=== PATIENT | female | born 1995 | race Two or more races ===

== ENCOUNTER 2018-09-06 09:00 | Inpatient (IN) | payer MEDICAID ==
[2018-09-06] VITALS (10 sets, daily range): BP systolic 101–130; BP diastolic 60–96
[~2018-09-06] VITALS: Ht 157.5 cm; Wt 129.3 kg
[~2018-09-06 09:00] MED LIST: IBUP1POW8 PO; PREN-96 PO
[2018-09-06] MEDS ORDERED: LACTATED RINGER'S 1,000 ML IV SCH (09:17)
[2018-09-06 09:44] LABS: Basophils # (auto) 0 uL; Eosinophils # (auto) 0.1 uL; Eosinophils % (auto) 1.1 % (0.0-7.0); Hemoglobin 11.1 g/dL (12.2-16.2); Lymphocytes # (auto) 1.6 uL; Monocytes # (auto) 0.6 uL
[2018-09-06 09:46] LABS: Basophils % (auto) 0.4 % (0.0-2.0); Hematocrit 34.7 % (36.0-46.0); Mean Corpuscular Hgb Conc. 32.1 g/dL (32.0-36.0); Mean Corpuscular Volume 77.9 fL (80.0-100.0); Monocytes % (auto) 6.3 % (0.0-12.0); Neutrophils # (auto) 7.3 uL; Neutrophils % (auto) 75.2 % (37.0-80.0); Platelet Count (auto) 361 10^3/uL (140-450); Red Blood Cells 4.45 10^6/uL (4.0-5.20); Red Cell Distribution Width 15.4 % (11.8-14.3); White Blood Cell 9.7 10^3/uL (4.4-10.8)
[2018-09-06 10:00] LABS: INR 0.84 (0.9-1.15); Partial Thromboplastin Time 27.1 sec (23.78-33.04); Prothrombin Time 9.1 sec (9.27-12.13)
[2018-09-06 10:02] LABS: Urine Bacteria FEW /hpf (None Seen); Urine Blood Negative /uL (Negative); Urine WBC 1 /hpf (0 - 5)
[2018-09-06 10:13] LABS: Albumin 2.6 g/dL (3.4-5.0); Calcium 8.6 mg/dL (8.5-10.1)
[2018-09-06 10:18] LABS: BUN/Creatinine Ratio 14.5; Bilirubin, Total 0.2 mg/dL (0.2-1.0); Total Protein 6.7 g/dL (6.4-8.2)
[2018-09-06] MEDS ORDERED: fentaNYL CITRATE 100 MCG/2 ML VL ONE (13:35)
[2018-09-06] MEDS ORDERED: MORPHINE SULF(PF) 0.5MG/ML 10ML VIAL ONE (13:35)
[2018-09-06] MEDS ORDERED: CLINDAMYCIN 900MG IV 50 ML IV ONE (14:33)
[2018-09-06] MEDS: LACTATED RINGER'S 1,000 ML IV SCH (14:58)
[2018-09-06] MEDS ORDERED: HYDROmorphone HCL 2 MG/ML VL IV PRN (15:00)
[2018-09-06] MEDS ORDERED: ONDANSETRON HCL 4 MG/2 ML VIAL IV PRN (15:00)
[2018-09-06] MEDS ORDERED: hydrALAZINE HCL 20 MG/ML VL IV PRN (15:00)
[2018-09-06] MEDS ORDERED: ONDANSETRON HCL 4 MG/2 ML VIAL IV ONE (15:00)
[2018-09-06] MEDS ORDERED: ePHEDrine SULFATE 50 MG/ML AMP IV PRN (15:00)
--- NOTE | 2018-09-06 16:05 | NUR ---
Post Op for LDRP: Received patient from PACU via bed to room . Patient A/A/Ox4, abdominal binder and bilateral SCD's are in place, IV fluids placed on pump and infusing per order, incisional site dressing clean/dry/intact and Farris Catheter to gravity draining clear yellow urine. Incentive Spirometer at bedside and instruction on proper use with return demonstration done by patient.
[2018-09-06] MEDS ORDERED: LACT. RINGERS/OXYTOCIN 20UNITS 1,000 ML IV ONE ×2 (16:12→16:45)
[2018-09-06] MEDS ORDERED: guaiFENesin-CODEINE LIQUID 5 ML UD PO PRN (17:00)
--- NOTE | 2018-09-06 17:00 | NUR ---
complained of cough,dr. solorio was called and updated on patient's status,received order to give robitussin cough syrup as directed.
[2018-09-06] MEDS: KETOROLAC TROMETH 30 MG/ML 1ML VIAL IV SCH (17:08)
--- NOTE | 2018-09-06 17:20 | NUR ---
dr. solorio was called back and reported that the patient desats when coughing,received order to order a breathing tx.
[2018-09-06] MEDS ORDERED: ALBUTEROL SULF 2.5 MG/0.5ML(0.5%) NEB SOLN NEB PRN (17:30)
--- NOTE | 2018-09-06 19:00 | NUR ---
Assessment Complete VS WNL, SCS in place bilaterally, pt still connected to dynamap for interval VS monitoring, abdominal incision dressing dry and intact.
[2018-09-06] MEDS: HYDROmorphone HCL 2 MG/ML VL IV PRN (22:14)
[2018-09-06] MEDS: CLINDAMYCIN 900MG IV 50 ML IV SCH (22:21)
--- NOTE | 2018-09-06 22:25 | NUR ---
Dilaudid IVP 1 mg/0.5 ml given. 0.5 ml wasted with Ira Paulson RN in medroom.
[2018-09-07] VITALS (11 sets, daily range): BP systolic 88–138; BP diastolic 47–74
[2018-09-07] MEDS: KETOROLAC TROMETH 30 MG/ML 1ML VIAL IV SCH (03:51)
[2018-09-07] MEDS: LACTATED RINGER'S 1,000 ML IV SCH ×3 (04:00→14:58)
--- NOTE | 2018-09-07 04:20 | NUR ---
Eden catheter dc'd Order to discontinue eden catheter. Eden dc'd with clean technique following deflation of balloon. Patient has no complaints of pain. SCD's removed, pt able to lift legs and states that she has regained feeling down to her feet. Dressing covering incision removed, all oneil in tact, surrounding area clean and dry, without drainage. Pt sitting at bedside with feet dangling, reports no dizziness or feeling of being light headed. Pt ambulates to bathroom with steady gait, pt able to void 50 ml of urine without complication. Pt provided instructed on how to perform pericare, pt returned demonstration. Pt ambulated to chair at bedside with steady gait. Pt displays no signs of distress at this time.
[2018-09-07] MEDS: HYDROmorphone HCL 2 MG/ML VL IV PRN (06:00)
[2018-09-07] MEDS: CLINDAMYCIN 900MG IV 50 ML IV SCH ×2 (06:31→14:13)
[2018-09-07] MEDS: guaiFENesin-DM 100/10mg/5ml SYR PO PRN ×3 (06:58→15:01)
--- NOTE | 2018-09-07 07:00 | NUR ---
PRN [place] TX NOT INDICATED AT THIS TIME. PT IS AWAKE, ALERT AND ORIENTED. PT SITTING UP ON CHAIR. PT ON RA, 96% O2 SATS, HR 68 BPM, [id number], BS ARE CLEAR TO AUSCULTATION, SKIN IS DRY AND WARM TO THE TOUCH. NO SOB OR ANY OTHER RESPIRATORY DISTRESS NOTED. PT INSTRUCTED TO CALL IF [place] TX IS INDICATED. PT VERBALIZED UNDERSTANDING. WILL CONTINUE TO MONITOR PT.
[2018-09-07 07:29] LABS: Basophils # (auto) 0 uL; Basophils % (auto) 0.3 % (0.0-2.0); Monocytes # (auto) 0.6 uL
[2018-09-07 07:31] LABS: Eosinophils # (auto) 0.1 uL; Eosinophils % (auto) 0.6 % (0.0-7.0); Hematocrit 32.3 % (36.0-46.0); Hemoglobin 10.7 g/dL (12.2-16.2); Lymphocytes # (auto) 1.9 uL; Lymphocytes % (auto) 20.8 % (10.0-50.0); Mean Corpuscular Hemoglobin 25.9 pg (28.0-32.0); Mean Corpuscular Hgb Conc. 33.2 g/dL (32.0-36.0); Mean Corpuscular Volume 78.2 fL (80.0-100.0); Monocytes % (auto) 6.7 % (0.0-12.0); Neutrophils # (auto) 6.5 uL; Neutrophils % (auto) 71.6 % (37.0-80.0); Nucleated Red Blood Cells % 0.1 %; Platelet Count (auto) 312 10^3/uL (140-450); Red Blood Cells 4.13 10^6/uL (4.0-5.20); White Blood Cell 9.1 10^3/uL (4.4-10.8)
[2018-09-07] MEDS ORDERED: KETOROLAC TROMETH 30 MG/ML 1ML VIAL IV SCH (10:00)
[2018-09-07] MEDS: DOCUSATE SOD 100 MG CAP PO SCH ×2 (14:23→21:52)
[2018-09-07] MEDS ORDERED: HYDROcodone-ACET 5/325MG TAB PO PRN (14:30)
[2018-09-07] MEDS ORDERED: SIMETHICONE 80 MG CHEWABLE TABLET PO PRN (14:30)
--- NOTE | 2018-09-07 17:00 | NUR ---
ambulated in the hallway 3 x and well tolerated.
[2018-09-07] MEDS: HYDROcodone-ACET 5/325MG TAB PO PRN (19:00)
--- NOTE | 2018-09-07 19:33 | NUR ---
Respiratory note: PT IS CURRENTLY ON ROOM AIR: HR 78, RR 18, SPO2 98% WITH CLEAR/DIM BS T/O. PT SHOWS NO S/S OF ANY RESPIRATORY DISTRESS. INFORMED PT IF SOB TO CONTACT RESPIRATORY FOR BREATHING TX. WILL CONTINUE TO MONITOR.
[2018-09-07] MEDS: IBUPROFEN 800 MG TAB PO SCH (21:52)
[2018-09-08 03:20] VITALS: BP 121/67
[2018-09-08] MEDS: HYDROcodone-ACET 5/325MG TAB PO PRN ×3 (04:07→21:38)
[2018-09-08] MEDS: IBUPROFEN 800 MG TAB PO SCH (06:04)
[2018-09-08 07:10] VITALS: BP 102/65
[2018-09-08] MEDS: DOCUSATE SOD 100 MG CAP PO SCH ×2 (10:29→21:38)
[2018-09-08 10:50] VITALS: BP 96/64
[2018-09-08 15:00] VITALS: BP 111/66
--- NOTE | 2018-09-08 16:09 | NUR ---
RT NOTE: PT. IN BATHROOM WHEN I WENT TO CHECK ON HER FOR PRN BREATHING TX. SPOKE WITH RN BROWN AND SHE STATES PT. HAS BEEN GOOD ALL DAY WITH NO COMPLAINTS OF SOB. PT. KNOW TO NOTIFY RN IF BREATHING TX. IS NEEDED.
[2018-09-08 18:30] VITALS: BP 117/67
--- NOTE | 2018-09-08 21:20 | NUR ---
RT NOTE: PT ASSESSED FOR PRN MED NEB TX, PT SITTING UPRIGHT WITH NO DISTRESS NOTED. PT DENIES SOB, PT STATED SHE HAS A COUGH. PT ON ROOM AIR SPO2 97% HR 81, RR 18. NO TX INDICATED AT THIS TIME. PT NOTIFIED TO HAVE RT PAGED IF TX NEEDED.
[2018-09-08 22:55] VITALS: BP 134/71
[2018-09-09] MEDS: HYDROcodone-ACET 5/325MG TAB PO PRN (02:36)
[2018-09-09 02:45] VITALS: BP 127/70
[2018-09-09] MEDS ORDERED: TETANUS-DIPTH-ACEL PERTUSSIS 0.5ML SYRG IM ONE (05:00)
[2018-09-09] MEDS ORDERED: MEASLES, MUMPS & RUBELLA VAC(MMRII) 0.5ML SC ONE (05:00)
[2018-09-09 06:40] VITALS: BP 127/70
[2018-09-09 06:45] VITALS: BP 115/63
--- NOTE | 2018-09-09 09:10 | NUR ---
PRESCRIPTION FOR PATIENT WAS TAKEN TO [facility]. AWAITING TO BE FILLED
--- NOTE | 2018-09-09 10:14 | NUR ---
Respiratory note: WENT INTO PATIENT'S ROOM TO ASSESS FOR PRN TX. PATIENT WAS OFF MONITOR AND WAS SPEAKING TO ELIA CHENG. NO RESPIRATORY DISTRESS NOTED OR STATED.
[2018-09-09 10:30] VITALS: BP 125/69
[2018-09-09] MEDS: DOCUSATE SOD 100 MG CAP PO SCH (10:30)
--- NOTE | 2018-09-09 10:30 | NUR ---
CALLED [facility] TO SEE IF MEDICATION IS READY AND CHOKE REAMER STATES BEOUSE OF 2 POWER OUTAGES IT WILL BE ANOTHER 20 MIN. AND THEY WILL CALL WHEN MEDICATION IS READY.
--- NOTE | 2018-09-09 10:41 | NUR ---
Pharmacy called and states medication is filled and ready for brick picker.
--- NOTE | 2018-09-09 10:46 | NUR ---
Artificial Nipple Education: Encouraged mother to refrain from using artificial nipples which include a pacifier. Discussed the risk of artificial nipple use and its effect on effective . Mother verbalized understanding of information and INSIST ON using artificial nipples. pacifier given.
--- NOTE | 2018-09-09 10:50 | NUR ---
Discharge: Discharge instructions given as ordered. Pt encouraged to follow up with [facility] as instructed. All questions and concerns addressed. Patient verbalized understanding. Medication reconciliation completed and copy given to patient. All required/requested vaccines given MMR and copies of vaccinations given to patient. Patient encouraged to prepare to depart unit.
--- NOTE | 2018-09-09 11:00 | NUR ---
Discharge: Patient taken to vehicle via ambulation with all personal belongings, accompanied by staff tobacco wrapping machine tendercindy shell and family member. No distress noted at time of departure, no adverse changes in status since initial assessment.
[2018-09-09 14:11] LABS: RPR Non Reactive (Non Reactive)
== END 2018-09-09 11:00 | disposition home or self-care (01) | DRG 540 ==
LOC: LDRP 09:00
PROVIDERS: ADMIT Specialist; ATTEND Specialist
PROC: 10D00Z1 Extraction of Products of Conception, Low, Open Approach (ICD-10-PCS; principal; 2018-09-06 13:38)
DX: O34.211 Maternal care for low transverse scar from previous cesarean delivery (principal); E66.01 Morbid (severe) obesity due to excess calories; O99.214 Obesity complicating childbirth; Z37.0 Single live birth; Z3A.39 39 weeks gestation of pregnancy; Z88.8 Allergy status to other drugs, medicaments and biological substances; Z91.013 Allergy to seafood
CPT/HCPCS: 36415; 51702; 80053; 81001; 85025; 85610; 85730; 86592; 86850; 86900; 86901; 90715; 94640; 96361; 96365; 96372; 96374; G0378; J1885; J2590; J3490